=== PATIENT | female | born 1970 | race Caucasian/White ===

== ENCOUNTER 2021-07-09 10:41 | Emergency (ER) | payer BC ==
[2021-07-09 10:47] VITALS: BP 130/70; PULSE 87; TEMP 99; BMI 35.9
[2021-07-11 12:07] LABS: SARS-CoV-2 NAA Detected (Not Detected)
== END 2021-07-09 12:40 | disposition home or self-care (01) ==
LOC: FER 10:41
DX: Z20.822 Contact with and (suspected) exposure to COVID-19 (principal)
CPT/HCPCS: 99283-25; C9803; U0003; U0005

== ENCOUNTER 2024-03-25 15:16 | Emergency (ER) | payer BC ==
[2024-03-25 15:59] VITALS: BP 110/48; PULSE 66; RESP 20; TEMP 97.3; BMI 35.9
== END 2024-03-25 18:07 | disposition home or self-care (01) ==
LOC: FER 15:16
DX: T18.128A Food in esophagus causing other injury, initial encounter (principal)
CPT/HCPCS: 70360-TC-FY; 71046-TC-FY; 99284-25